=== PATIENT | male | born 1970 ===

== ENCOUNTER 2019-04-27 21:52 | Emergency (ER) | payer OTHER ==
[2019-04-27 21:58] VITALS: RESP 16; TEMP 95.8
[2019-04-27 22:46] LABS: APPEARANCE,URINE Clear; BILIRUBIN,URINE NEGATIVE (NEGATIVE); COLOR,URINE Yellow; GLUCOSE, URINE (UA) NEGATIVE (NEGATIVE); KETONES,URINE NEGATIVE (NEGATIVE); LEUKOCYTE ESTERASE ,URINE NEGATIVE (NEGATIVE); NITRATE,URINE NEGATIVE (NEGATIVE); OCCULT BLOOD,URINE NEGATIVE (NEG-TRACE); PH,URINE 5.5; UROBILINOGEN,URINE 0.2 (0.2-1.0 EU)
[2019-04-27 22:47] LABS: HEMATOCRIT 59 % (39-53); MEAN CORPUSCULAR HEMOGLOBIN 30.9 pg (27.0-32.0); MEAN CORPUSCULAR HGB CONC 31.8 gm/dl (32.0-36.0); MEAN CORPUSCULAR VOLUME 97 fL (80-100)
[2019-04-27 22:52] LABS: HEMOGLOBIN 18.8 gm/dl (13.5-17.7)
[2019-04-27 22:59] LABS: BACTERIA 1+ (< 1+); CRYSTALS NEGATIVE (0-3 AVE/HPF); EPITHELIAL CELLS 0-1 (SQUAMOUS); RBC,URINE 0-1 (0-3AV/HPF); WBC,URINE 0-1 (0-5AV/HPF)
[2019-04-27 23:16] LABS: BAND NEUTROPHILS % (MANUAL) 1 %; BASOPHILS % (MANUAL) 2 % (0-3); EOSINOPHILS % (MANUAL) 0 % (0-9)
[2019-04-27 23:17] LABS: MONOCYTES % (MANUAL) 12 % (0-12)
[2019-04-27 23:19] LABS: LYMPHOCYTES % (MANUAL) 20 % (10-50); NEUTROPHILS % (MANUAL) 65 % (37-80)
[2019-04-27 23:39] VITALS: O2SAT 94
[2019-04-27 23:40] VITALS: BP 148/90; PULSE 78
== END 2019-04-27 23:24 | disposition home or self-care (01) ==
LOC: ED 21:52
DX: K29.20 Alcoholic gastritis without bleeding (principal)
CPT/HCPCS: 36415; 81001; 85007; 85027; 99282; 99283